=== PATIENT | male | born 1975 | race African-American/Black ===

== ENCOUNTER 2020-01-02 20:01 | Inpatient (IN) ==
[2020-01-02] MEDS ORDERED: ONDANSETRON 4 MG/2 ML VIAL IV STA (20:42)
[2020-01-02] MEDS ORDERED: PIPERACILLIN/TAZOBACTAM 3,375 MG in SODIUM CHLORIDE 0.9% 100 ML IV STA (20:42)
[2020-01-02] MEDS ORDERED: AZITHROMYCIN INJ 500 MG in SODIUM CHLORIDE 0.9% 250 ML IV STA (20:42)
[2020-01-02] MEDS ORDERED: ALBUTEROL/IPRATROPIUM 3 ML NEB RESP TX STA (20:42)
[2020-01-02] MEDS ORDERED: methylPREDNISolone SOD SUC 125 MG/2 ML VIAL IV STA (20:42)
[2020-01-02 21:38] LABS: Basophils % 0.2 % (0.0-0.8); Hematocrit 49.3 VOL% (42.0-52.0); Hemoglobin 16.8 GM/DL (14.0-18.0); Immature Granulocytes % 0.6 %; Immature Granulocytes Absolute 0.08 #; Lymphocytes % 13.9 % (21.2-54.2); Mean Corpuscular HGB Conc 34.1 GM/DL (32-36); Mean Corpuscular Volume 85.9 FL (87-102); Mean Platelet Volume 9.4 FL (9.6-12.0); Monocytes % 5.6 % (1.7-12.7); Neutrophils % 79.7 % (38.7-73.9); Platelet Count 307 T/CUMM (130-400); Red Blood Count 5.74 MC/CUMM (3.8-5.5); Red Cell Distribution Width 12.9 % (9.3-17.3); White Blood Count 14.4 T/CUMM (4-12)
[2020-01-02 21:48] LABS: INR 1.1; PT Patient Result 11.4 SECS (9.8-11.9)
[2020-01-02 22:35] LABS: Band Neutrophils 1 % (0-10); Lymphocytes 10 % (20-55); Microcytosis Slight; Segmented Neutrophils 83 % (50-85); Total Cells Counted 100
[2020-01-02 22:36] LABS: Hypochromasia Slight; Platelet Estimate Normal
[2020-01-03 00:03] LABS: Apearance,Urine CLEAR (Clear); Bilirubin,Urine Negative (Negative); Blood, Urine Negative (Negative); Glucose,Urine (UA) Negative (Negative); Hyaline Casts,Urine 7 /LPF (0-3); Ketones,Urine Negative (Negative); Mucus,Urine Moderate /LPF (Occasional); Nitrite,Urine Negative (Negative); Protein,Urine 100 MG/DL; RBC,Urine 1 /HPF (0-4); Squamous Epithelial Cell,Urine Occasional /HPF (0-10); Urine Color Yellow (Yellow); Urine Specific Gravity 1.023 (1.001-1.035); Urine Urobilinogen < 2.0 EU/DL (0.2-1.0); WBC,Urine 2 /HPF (0-6)
[2020-01-03 00:06] LABS: Barbiturates Screen,Urine Negative (Negative); Benzodiazepines Screen,Urine Negative (Negative); Cannabinoid Screen,Urine Negative (Negative); Opiate Screen,Urine Negative (Negative); Phencyclidine Screen,Urine Negative (Negative)
[2020-01-03 00:52] LABS: Albumin 2.9 G/DL (3.4-5.0); Bilirubin,Total 0.79 MG/DL (0.2-1.0); Calcium 9.3 MG/DL (8.5-10.1); Total Protein 8.6 G/DL (6.4-8.3)
[2020-01-03 00:53] LABS: Ferritin 1127.6 ng/ml (26-388); Osmolality,Calculated 257.1 MOS/KG (273-304)
[2020-01-03] MEDS ORDERED: SODIUM CHLORIDE 0.9% 500 ML IV ONE (02:58)
[2020-01-03 06:35] LABS: Basophils % 0.2 % (0.0-0.8); Hematocrit 49.1 VOL% (42.0-52.0); Hemoglobin 16.4 GM/DL (14.0-18.0); Immature Granulocytes % 0.7 %; Immature Granulocytes Absolute 0.08 #; Lymphocytes # 1.4 10*3/uL (1.4-4.0); Lymphocytes % 11.7 % (21.2-54.2); Mean Corpuscular HGB Conc 33.4 GM/DL (32-36); Mean Corpuscular Volume 87.2 FL (87-102); Mean Platelet Volume 9.4 FL (9.6-12.0); Monocytes % 1.2 % (1.7-12.7); Neutrophils % 86.2 % (38.7-73.9); Platelet Count 341 T/CUMM (130-400); Red Blood Count 5.63 MC/CUMM (3.8-5.5); Red Cell Distribution Width 12.7 % (9.3-17.3)
[2020-01-03 07:21] LABS: Band Neutrophils 2 % (0-10); Lymphocytes 12 % (20-55); Segmented Neutrophils 86 % (50-85); Total Cells Counted 100
[2020-01-03 07:22] LABS: Atypical Lymphocytes Few; Hypochromasia 1+; Microcytosis 2+; Platelet Estimate Increased; Polychromasia Slight
[2020-01-03] MEDS: cefTRIAXone 1,000 MG in SYRINGE 1 EACH IV SCH (08:10)
[2020-01-03] MEDS: ENOXAPARIN 40 MG/0.4 ML SYRINGE SUBCUT SCH (08:10)
[2020-01-03] MEDS: ZINC SULFATE 220 MG CAPSULE PO SCH (08:10)
[2020-01-03] MEDS: ALBUTEROL INHALER 8 GM INH SCH ×3 (08:10→21:15)
[2020-01-03] MEDS: HYDROXYCHLOROQUINE 200 MG TABLET PO SCH ×2 (08:10→21:15)
[2020-01-03 08:20] LABS: Calcium 9.4 MG/DL (8.5-10.1)
[2020-01-03 08:21] LABS: Osmolality,Calculated 272.4 MOS/KG (273-304)
[2020-01-03] MEDS: SODIUM CHLORIDE 0.9% 1,000 ML IV SCH ×2 (11:47→20:05)
[2020-01-03] MEDS: DOXYCYCLINE HYCLATE 100 MG CAPSULE PO SCH (17:42)
[2020-01-03] MEDS ORDERED: AZITHROMYCIN 250 MG TABLET PO SCH (21:00)
[2020-01-04] MEDS: ALBUTEROL INHALER 8 GM INH SCH ×4 (00:50→19:45)
[2020-01-04] MEDS: SODIUM CHLORIDE 0.9% 1,000 ML IV SCH (04:15)
[2020-01-04 06:41] LABS: Basophils % 0.1 % (0.0-0.8); Hematocrit 45.5 VOL% (42.0-52.0); Hemoglobin 15.3 GM/DL (14.0-18.0); Immature Granulocytes % 0.9 %; Immature Granulocytes Absolute 0.14 #; Lymphocytes # 2.2 10*3/uL (1.4-4.0); Lymphocytes % 14.4 % (21.2-54.2); Mean Corpuscular HGB Conc 33.6 GM/DL (32-36); Mean Corpuscular Volume 86.7 FL (87-102); Mean Platelet Volume 9.7 FL (9.6-12.0); Monocytes % 6.6 % (1.7-12.7); Platelet Count 375 T/CUMM (130-400); Red Blood Count 5.25 MC/CUMM (3.8-5.5); Red Cell Distribution Width 12.8 % (9.3-17.3); White Blood Count 14.9 T/CUMM (4-12)
[2020-01-04 07:02] LABS: Calcium 8.8 MG/DL (8.5-10.1); Osmolality,Calculated 274.8 MOS/KG (273-304)
[2020-01-04 07:54] LABS: Platelet Estimate Normal
[2020-01-04] MEDS: DOXYCYCLINE HYCLATE 100 MG CAPSULE PO SCH ×2 (10:37→16:32)
[2020-01-04] MEDS: HYDROXYCHLOROQUINE 200 MG TABLET PO SCH ×2 (10:37→20:09)
[2020-01-04] MEDS: ENOXAPARIN 40 MG/0.4 ML SYRINGE SUBCUT SCH (10:37)
[2020-01-04] MEDS: cefTRIAXone 1,000 MG in SYRINGE 1 EACH IV SCH (10:37)
[2020-01-04] MEDS: ONDANSETRON 4 MG/2 ML VIAL IV PRN (20:09)
[2020-01-05] MEDS: ALBUTEROL INHALER 8 GM INH SCH ×4 (00:26→18:33)
[2020-01-05] MEDS: ACETAMINOPHEN 325 MG TABLET PO PRN (05:03)
[2020-01-05] MEDS: ZINC SULFATE 220 MG CAPSULE PO SCH (11:15)
[2020-01-05] MEDS: HYDROXYCHLOROQUINE 200 MG TABLET PO SCH (11:15)
[2020-01-05] MEDS: ENOXAPARIN 40 MG/0.4 ML SYRINGE SUBCUT SCH (11:42)
[2020-01-05] MEDS: DOXYCYCLINE HYCLATE 100 MG CAPSULE PO SCH ×2 (11:43→17:00)
[2020-01-05] MEDS: cefTRIAXone 1,000 MG in SYRINGE 1 EACH IV SCH (11:43)
[2020-01-05] MEDS: ONDANSETRON 4 MG/2 ML VIAL IV PRN ×2 (13:33→17:35)
[2020-01-06] MEDS: ALBUTEROL INHALER 8 GM INH SCH ×4 (00:10→20:04)
[2020-01-06 06:21] LABS: Basophils % 0.3 % (0.0-0.8); Eosinophils # 0.1 10*3/uL (0.0-0.87); Eosinophils % 0.5 % (0.00-10.9); Hematocrit 47.5 VOL% (42.0-52.0); Hemoglobin 15.9 GM/DL (14.0-18.0); Immature Granulocytes % 1.2 %; Immature Granulocytes Absolute 0.13 #; Lymphocytes # 2.3 10*3/uL (1.4-4.0); Lymphocytes % 20.4 % (21.2-54.2); Mean Corpuscular HGB Conc 33.5 GM/DL (32-36); Mean Corpuscular Volume 87.8 FL (87-102); Mean Platelet Volume 9.1 FL (9.6-12.0); Monocytes % 8.3 % (1.7-12.7); Neutrophils % 69.3 % (38.7-73.9); Platelet Count 406 T/CUMM (130-400); Red Blood Count 5.41 MC/CUMM (3.8-5.5); Red Cell Distribution Width 12.6 % (9.3-17.3); White Blood Count 11.1 T/CUMM (4-12)
[2020-01-06 06:41] LABS: Calcium 9.4 MG/DL (8.5-10.1); Osmolality,Calculated 260.7 MOS/KG (273-304)
[2020-01-06 07:29] LABS: Hypochromasia 1+; Microcytosis Slight
[2020-01-06 07:30] LABS: Platelet Estimate Increased
[2020-01-06] MEDS: cefTRIAXone 1,000 MG in SYRINGE 1 EACH IV SCH (09:50)
[2020-01-06] MEDS: DOXYCYCLINE HYCLATE 100 MG CAPSULE PO SCH ×2 (09:50→16:03)
[2020-01-06] MEDS: ENOXAPARIN 40 MG/0.4 ML SYRINGE SUBCUT SCH (09:50)
[2020-01-06] MEDS ORDERED: POTASSIUM CHLORIDE 20 MEQ TABLET PO ONE (15:19)
[2020-01-07] MEDS: ALBUTEROL INHALER 8 GM INH SCH ×3 (00:45→13:29)
[2020-01-07 06:05] LABS: Basophils % 0.4 % (0.0-0.8); Eosinophils # 0.2 10*3/uL (0.0-0.87); Eosinophils % 1.6 % (0.00-10.9); Hematocrit 45.4 VOL% (42.0-52.0); Hemoglobin 15.2 GM/DL (14.0-18.0); Immature Granulocytes % 1.2 %; Immature Granulocytes Absolute 0.13 #; Lymphocytes # 2.4 10*3/uL (1.4-4.0); Lymphocytes % 21.4 % (21.2-54.2); Mean Corpuscular HGB Conc 33.5 GM/DL (32-36); Mean Corpuscular Volume 86.5 FL (87-102); Monocytes % 9.2 % (1.7-12.7); Neutrophils % 66.2 % (38.7-73.9); Platelet Count 459 T/CUMM (130-400); Red Blood Count 5.25 MC/CUMM (3.8-5.5); Red Cell Distribution Width 12.4 % (9.3-17.3); White Blood Count 11.2 T/CUMM (4-12)
[2020-01-07 06:22] LABS: Osmolality,Calculated 266.2 MOS/KG (273-304)
[2020-01-07] MEDS: DOXYCYCLINE HYCLATE 100 MG CAPSULE PO SCH (07:59)
[2020-01-07] MEDS: ENOXAPARIN 40 MG/0.4 ML SYRINGE SUBCUT SCH (07:59)
[2020-01-07] MEDS: cefTRIAXone 1,000 MG in SYRINGE 1 EACH IV SCH (07:59)
[2020-01-07] MEDS: ACETAMINOPHEN 325 MG TABLET PO PRN (11:07)
[2020-01-07 12:09] VITALS: BP 126/66
== END 2020-01-07 13:55 | disposition home or self-care (01) | DRG 139 ==
LOC: N.ED 20:01 → N.EDINP 01-03 02:30 → SUATTDRO 01-03 02:30 → N.2E 01-03 02:41
PROVIDERS: ADMIT Internal Medicine; ATTEND Internal Medicine Cardiovascular Disease